=== PATIENT | male | born 2000 | race Caucasian/White ===

== ENCOUNTER 2020-04-10 06:54 | Outpatient (NON) | payer OTHER, SELFPAY ==
[2020-04-12 00:26] LABS: SARS-CoV-2 RNA PCR Negative
== END 2020-04-10 06:55 ==
PROVIDERS: PCP Family Medicine; Visit Provider Nurse Practitioner
DX: R68.89 Other general symptoms and signs (principal); Z20.828 Contact with and (suspected) exposure to other viral communicable diseases
CPT/HCPCS: 87635; C9803; U0003

== ENCOUNTER → 2021-03-13 03:12 | Outpatient (CLI) | payer OTHER, SELFPAY ==
[2021-03-13 17:50] LABS: SARS-CoV-2 RNA PCR Negative
== END ==
PROVIDERS: PCP Nurse Practitioner; Visit Provider Family Medicine
DX: R68.89 Other general symptoms and signs (principal); Z20.822 Contact with and (suspected) exposure to COVID-19
CPT/HCPCS: C9803; U0003; U0005

== ENCOUNTER 2021-04-27 11:49 | Emergency (ER) | payer OTHER, SELFPAY ==
[2021-04-27 12:11] VITALS: BP 111/88; PULSE 86; RESP 18; TEMP 36.6; O2SAT 98
--- NOTE | 2021-04-27 12:40 | ED.URI ---
HPI - URI/Sore Throat General Chief Complaint: Upper Respiratory Infection Stated Complaint: cough Time Seen by Provider: 04/27/21 12:28 Source: family (Father) Limitations: other (History of autism and Fragile X) History of Present Illness HPI Narrative: Patient is a 20-year-old male with a history of autism, brought in by father to get tested for Covid since patient had been having cough and nasal congestion for the past few days. Father states that he tested positive for Covid and wants to know if his son also has it. Denies any shortness of breath, abdominal pain, nausea, vomiting, diarrhea or fever. Related Data Allergies Allergy/AdvReac Type Severity Reaction Status Date / Time No Known Allergies Allergy Unverified 07/03/20 09:24 Review of Systems Review of Systems: All systems reviewed & are unremarkable except as noted in HPI and below ROS unobtainable: Yes other (History of autism, Fragile X) Constitutional: Constitutional: Reports as per HPI PMFSH Past Medical History Medical History Autism spectrum disorder Fragile X syndrome Surgical History Surgical History History of placement of ear tubes Family History Family History Mother Family history of mental disorder Grandparent Hypertension Family history of congestive heart failure Family history of human immunodeficiency virus infection Diabetes mellitus Social History Social History Smoking status: Never smoker Exam Const: General: cooperative, healthy appearing, comfortable, no acute distress, well developed, alert and awake Orientation/consciousness: oriented to person HENMT: Head: normal to inspection, normocephalic and atraumatic Ears: hearing grossly normal bilaterally, TM normal on the right and TM normal on the left General nose exam: Normal external nose present, Normal nares present and No nasal discharge present Face and sinus: normal facial exam Mouth: Yes Normal oral and palatal mucosa present, Yes lip normal, Yes tongue normal and Yes oropharynx normal Throat: posterior oropharynx normal, tonsils normal and uvula midline Eyes: General: appearance normal, both eyes and all related structures Pupils: Equal, round and reactive pupils present EOM: EOMs intact bilaterally Neck: Neck: normal visual inspection, full ROM, no lymphadenopathy and no meningeal signs Chest: Chest palpation & inspection: normal inspection of the chest Resp: Effort & Inspection: normal respiratory effort, able to speak in complete sentences, no respiratory distress and not tachypneic Auscultation: clear to auscultation bilaterally, no crackles, no rales, no rhonchi and no wheezes Cardio: Rate: regular rate Rhythm: regular rhythm GI: Inspection: normal to inspection GI Palp: No abdominal tenderness, Yes Soft to palpation, No Tenderness to palpation present (GI), No Guarding due to palpation present (GI), No Rigid due to palpation and No Rebound tenderness present Auscultation: normal bowel sounds : General: Yes no CVA tenderness Back/Spine/Pelvis: Back: no CVA tenderness Skin: General skin exam: normal color, no rashes or lesions noted, elasticity normal and turgor normal Neuro: General: oriented to person, tone normal, moves all extremities, Normal light touch and pain sensation, no meningeal signs, no focal motor deficits, CN's II-XI intact bilaterally and No confusion Cranial nerves: Yes Equal, round and reactive pupils present Speech: No Abnormal speech present Sensory Exam: No Sensory deficit (Neuro) Extrem: General: normal to inspection, full ROM and capillary refill normal Psych: Appearance: grossly normal and well kempt Mental Status: mental status grossly normal Speech and movement: Normal speech and movement present
[2021-04-27 16:00] LABS: EDCOVIDSCREEN Negative (Negative)
[2021-04-27 16:12] VITALS: BP 119/73; PULSE 85; RESP 18; O2SAT 98
== END 2021-04-27 16:29 | disposition home or self-care (01) ==
PROVIDERS: Emergency Provider Emergency Medicine; PCP Family Medicine
DX: J06.9 Acute upper respiratory infection, unspecified (principal); Z20.822 Contact with and (suspected) exposure to COVID-19; F84.0 Autistic disorder; Q99.2 Fragile X chromosome
CPT/HCPCS: 36415; 87426; 87804; 99283; C9803

== ENCOUNTER 2021-04-30 17:41 | Emergency (ER) | payer OTHER, SELFPAY ==
[2021-04-30 19:01] VITALS: BP 112/63; PULSE 80; RESP 16; TEMP 36.1; O2SAT 98
--- NOTE | 2021-04-30 20:18 | ED.GENADULT ---
HPI - General Adult General Chief complaint: Upper Respiratory Infection Stated complaint: needs covid test Time Seen by Provider: 04/30/21 19:17 Source: patient and family (Stepmother) Mode of arrival: ambulatory Limitations: no limitations History of Present Illness HPI narrative: Patient is a 20-year-old male with fragile X syndrome brought in by his stepmother for Covid testing. Patient reports that his father is admitted to the hospital with diagnosis of Covid pneumonia. Patient was tested on 04/27 and the result was negative so they have brought patient to be retested. Patient has intermittent fever and cough. Patient does not have shortness of breath, chest pain, nausea, vomiting or any other emergent symptoms. Related Data Allergies Allergy/AdvReac Type Severity Reaction Status Date / Time No Known Allergies Allergy Verified 04/30/21 19:16 Review of Systems Review of Systems: CONSTITUTIONAL: Reports intermittent fever, denies chills, or sweats. EYES: Denies visual changes, redness, or discharge. ENT: Denies rhinorrhea, congestion, sore throat, or otalgia. CARDIOVASCULAR: Denies chest pain, palpitations, or edema. RESPIRATORY: Reports cough denies dyspnea. GASTROINTESTINAL: Denies abdominal pain, nausea, vomiting, or diarrhea. GENITOURINARY: Denies dysuria or hematuria. SKIN: Denies rash or itching. MUSCULOSKELETAL: Denies back pain, joint pain, or myalgia. NEUROLOGIC: Denies headache, numbness, dizziness, or weakness. PSYCHIATRIC: Denies anxiety or depression. PMFSH Past Medical History Medical History Autism spectrum disorder Fragile X syndrome Surgical History Surgical History History of placement of ear tubes Family History Family History Mother Family history of mental disorder Grandparent Hypertension Family history of congestive heart failure Family history of human immunodeficiency virus infection Diabetes mellitus Social History Social History Smoking status: Never smoker Exam Narrative: GENERAL: Well-appearing, well-nourished, and in no acute distress. Patient smiling and talking listening to music. Nontoxic in appearance. HEAD: Normocephalic, atraumatic. CHEST: No respiratory distress. No tachypnea. Patient satting 98% on room air EXTREMITIES: Normal range of motion. . PSYCH: Pleasant mood. Course Vital Signs Vital signs: Vital Signs Temperature 96.9 F L 04/30/21 19:01 Pulse Rate 80 04/30/21 19:01 Respiratory Rate 16 04/30/21 19:01 Blood Pressure 112/63 04/30/21 19:01 Pulse Oximetry 98 04/30/21 19:01 Temperature 96.9 F L 04/30/21 19:01 Pulse Rate 80 04/30/21 19:01 Respiratory Rate 16 04/30/21 19:01 Blood Pressure 112/63 04/30/21 19:01 Pulse Oximetry 98 04/30/21 19:01 Medical Decision Making MDM Narrative Medical decision making narrative: Discussed with patient and stepmother in observation status Covid test results and the need to quarantine. Discussed return ER instructions. Patient is nontoxic and not hypoxic. Patient is a good candidate for outpatient treatment. Vital Signs Vital Signs: Vital Signs Temperature 96.9 F L 04/30/21 19:01 Pulse Rate 80 04/30/21 19:01 Respiratory Rate 16 04/30/21 19:01 Blood Pressure 112/63 04/30/21 19:01 Pulse Oximetry 98 04/30/21 19:01 Temperature 96.9 F L 04/30/21 19:01 Pulse Rate 80 04/30/21 19:01 Respiratory Rate 16 04/30/21 19:01 Blood Pressure 112/63 04/30/21 19:01 Pulse Oximetry 98 04/30/21 19:01 Lab Data Labs: Lab Results 04/30/21 Range/Units 19:27 SARS-CoV-2 RNA (RT-PCR) Pending Discharge Plan Discharge Clinical Impression: Close exposure to COVID-19 virus Patient Disposition: Home, Self-Care Condition
[2021-05-01 12:27] LABS: SARS-CoV-2 RNA PCR Positive
== END 2021-04-30 20:38 | disposition home or self-care (01) ==
PROVIDERS: Physician Assistant; Emergency Provider Emergency Medicine; PCP Family Medicine
DX: U07.1 COVID-19 (principal); Q99.2 Fragile X chromosome; F84.0 Autistic disorder
CPT/HCPCS: 99283; C9803; U0003; U0005